=== PATIENT | female | born 1945 | race Hispanic/Latino ===

== ENCOUNTER 2016-09-15 14:00 | Emergency (ER) | payer BC, MEDICARE ==
[2016-09-15] MEDS ORDERED: VALIUM PO ONE (17:00)
[2016-09-15 17:50] VITALS: BP 152/68
--- NOTE | 2016-09-15 18:06 | Emergency Department Report ---
ED General Adult HPI - General Chief complaint: Headache Stated complaint: ELEVATED BP/NAUSEA/DIARRHEA Time Seen by Provider: 09/15/16 16:33 Source: patient Mode of arrival: Ambulatory Limitations: No Limitations - History of Present Illness Initial comments: patient comes in today with complaints of feeling overwhelmed. States that she has multiple stressors going on in her life and thinks that she needs some help. States that it all seemed to start in March 2016 when her spouse of 26 years . States that she left catholic today and had an episode of crying, DE ANDA, nausea. States that she believes that she had a panic attack. States that she does not sleep very good at night because her mind won't stop racing. Patient is asking for some help. -: unknown Consistency: intermittent Associated Symptoms: headaches, loss of appetite, nausea/vomiting. denies: confusion, chest pain, cough, diaphoresis, fever/chills, rash, seizure, shortness of breath, syncope, weakness - Related Data Home Medications Medication Instructions Recorded Confirmed Last Taken Estradiol 1.5 mg PO DAILY 07/20/14 07/20/14 Unknown Furosemide [Lasix] 40 mg PO DAILY 07/20/14 07/20/14 Unknown Levothyroxine [Synthroid] 75 mcg PO DAILY 07/20/14 07/20/14 Unknown Previous Rx's Medication Instructions Recorded Last Taken Type Pantoprazole [Protonix TAB] 40 mg PO DAILY #30 tablet 07/21/14 Unknown Rx Diazepam Tab [Valium] 5 mg PO TID PRN #45 tablet 09/15/16 Unknown Rx Escitalopram [Lexapro] 10 mg PO DAILY #30 tablet 09/15/16 Unknown Rx Allergies Allergy/AdvReac Type Severity Reaction Status Date / Time No Known Allergies Allergy Verified 09/15/16 14:52 ED Review of Systems ROS: Stated complaint: ELEVATED BP/NAUSEA/DIARRHEA Other details as noted in HPI Constitutional: denies: chills, fever Eyes: denies: eye pain, eye discharge, vision change ENT: denies: ear pain, throat pain Respiratory: denies: cough, orthopnea, shortness of breath, SOB with exertion, wheezing Cardiovascular: denies: chest pain, palpitations, dyspnea on exertion, edema, syncope, paroxysmal nocturnal dyspnea Endocrine: no symptoms reported. denies: excessive sweating, flushing, intolerance to cold, increased hunger, increased thirst, increased urine Gastrointestinal: nausea, diarrhea. denies: abdominal pain, vomiting Genitourinary: denies: urgency, dysuria, frequency, hematuria, discharge Musculoskeletal: denies: back pain, joint swelling, arthralgia Skin: denies: rash, lesions Neurological: headache. denies: weakness, paresthesias Psychiatric: anxiety, depression, other (sleep disturbance, poor thought process , irritability). denies: auditory hallucinations, visual hallucinations, homicidal thoughts, suicidal thoughts Hematological/Lymphatic: denies: easy bleeding, easy bruising ED Past Medical Hx - Past Medical History Hx Hypertension: Yes Hx GERD: Yes Hx Kidney Stones: Yes Additional medical history: MVP. HYPOTHYROID - Surgical History Hx Cholecystectomy: Yes Additional Surgical History: hysterectomy. HERNIA REPAIR. TONSILLECTOMY. RIGHT KNEE -LAPAROSCOPY. KIDNEY STONES REMOVED - Social History Smoking Status: Never Smoker Substance Use Type: None - Medications Home Medications: Home Medications Medication Instructions Recorded Confirmed Last Taken Type Estradiol 1.5 mg PO DAILY 07/20/14 07/20/14 Unknown History Furosemide [Lasix] 40 mg PO DAILY 07/20/14 07/20/14 Unknown History Levothyroxine [Synthroid] 75 mcg PO DAILY 07/20/14 07/20/14 Unknown History Pantoprazole [Protonix TAB] 40 mg PO DAILY #30 tablet 07/21/14 Unknown Rx Diazepam Tab [Valium] 5 mg PO TID PRN #45 tablet 09/15/16 Unknown Rx Escitalopram [Lexapro] 10 mg PO DAILY #30 tablet 09/15/16 Unknown Rx ED Physical Exam - General Limitations: No Limitations General appearance: alert, in no apparent distress, anxious, other (tearful) - Head Head exam: Present: atraumatic, normocephalic, normal inspection - Eye Eye exam: Present: normal appearance, PERRL, EOMI Pupils: Present: normal accommodation - ENT ENT exam: Present: normal exam, normal orophraynx, mucous membranes moist - Neck Neck exam: Present: normal inspection, full ROM. Absent: tenderness, meningismus, lymphadenopathy, thyromegaly - Respiratory Respiratory exam: Present: normal lung sounds bilaterally. Absent: respiratory distress, wheezes, rales, rhonchi, chest wall tenderness, accessory muscle use - Cardiovascular Cardiovascular Exam: Present: regular rate, normal rhythm. Absent: systolic murmur, diastolic murmur, rubs, gallop - GI/Abdominal GI/Abdominal exam: Present: soft, normal bowel sounds. Absent: distended, tenderness, guarding, rebound, rigid - Rectal Rectal exam: Present: deferred - Extremities Exam Extremities exam: Present: normal inspection - Back Exam Back exam: Present: normal inspection, full ROM. Absent: tenderness, CVA tenderness (R), CVA tenderness (L), muscle spasm, paraspinal tenderness - Neurological Exam Neurological exam: Present: alert, oriented X3, CN II-XII intact, normal gait, reflexes normal. Absent: motor sensory deficit - Psychiatric Psychiatric exam: Present: normal affect, normal mood, anxious. Absent: agitated, manic, homicidal ideation, suicidal ideation - Skin Skin exam: Present: warm, dry, intact, normal color. Absent: rash - Other Other exam information: spend several minutes with patient allowing her to speak freely. ED Course Vital Signs 09/15/16 09/15/16 14:54 17:49 Temperature 98.2 F Pulse Rate 56 L Respiratory 17 16 Rate Blood Pressure 178/82 Blood Pressure 152/68 [Left] O2 Sat by Pulse 98 Oximetry ED Medical Decision Making - Medical Decision Making patient is having many symptoms that I do believe to be ralted to stress and poor sleep patterns. She states that she used to be on blood pressure meds but that her doctor took her off the medicine as her BP was running good. She has multiple stressors in her life but does have good support at home. She has taken Valium in the past with great success. I gave patient a dose of oral valium in ER and her BP improved to 152/68 and therefore I am more inclined to treat her anxiety prior to starting new BP meds now. Patient is with family in room and they are in agreement with treatment plan and she is stable for discharge. Critical care attestation.: If time is entered above; I have spent that time in minutes in the direct care of this critically ill patient, excluding procedure time. ED Disposition Clinical Impression: HTN (hypertension), Anxiety, Insomnia Disposition: DISCHARGED TO HOME OR SELFCARE Is pt being admited?: No Does the pt Need Aspirin: No Condition: Good Instructions: Hypertension (ED), Panic Disorder (ED), Anxiety (ED), Stress (ED) Prescriptions: Diazepam Tab [Valium] 5 mg PO TID PRN #45 tablet PRN Reason: Anxiety Escitalopram [Lexapro] 10 mg PO DAILY #30 tablet Referrals: PRIMARY CARE,MD [Primary Care Provider] - 3-5 Days (for BP check and medication check) Forms: Work/School Release Form(ED) Time of Disposition: 18:15
== END 2016-09-15 18:27 | disposition home or self-care (01) ==
LOC: ED 14:00
DX: I10 Essential (primary) hypertension (principal); F41.9 Anxiety disorder, unspecified; G47.00 Insomnia, unspecified; K21.9 Gastro-esophageal reflux disease without esophagitis; E03.9 Hypothyroidism, unspecified; Z90.710 Acquired absence of both cervix and uterus; Z90.89 Acquired absence of other organs; Z90.49 Acquired absence of other specified parts of digestive tract
CPT/HCPCS: 99282

== ENCOUNTER 2016-09-26 12:28 | Outpatient (CLI) | payer BC, MEDICARE ==
--- NOTE | 2016-09-27 08:59 | Mammography Report ---
BILATERAL DIGITAL SCREENING MAMMOGRAM with CAD : 09/26/16 12:28:00 CLINICAL: Routine screening. COMPARISON:12/02/14 FINDINGS: The breasts are heterogeneously dense, which may obscure small masses. No mass, architectural distortion or suspicious calcifications. IMPRESSION: No mammographic evidence of malignancy. BI-RADS CATEGORY: 2 -- Benign RECOMMENDATION: Routine mammographic screening in one year. COMMENT: Patient follow-up letters are generated by our [employer] application.
== END 2016-09-26 12:29 | disposition home or self-care (01) ==
LOC: SPVWC 12:28
PROVIDERS: ATTEND Obstetrics & Gynecology
DX: Z12.31 Encounter for screening mammogram for malignant neoplasm of breast (principal)
CPT/HCPCS: 77067; G0202

== ENCOUNTER 2017-10-14 07:59 | Outpatient (CLI) | payer BC, MEDICARE ==
--- NOTE | 2017-10-14 10:12 | Mammography Report ---
BONE DEXA:10/14/17 08:30:00 CLINICAL: Postmenopausal. No comparison. TECHNIQUE: Two site bone DEXA performed on an Hologic scanner. FINDINGS: L1 BMD is 0.860g/cm squared with T score = -1.2 and Z score = +0.7. L2 BMD is 0.895g/cm squared with T score = -1.2 and Z score = +0.9. L3 BMD is 0.926g/cm squared with T score = -1.4 and Z score = +0.8. L4 BMD is 0.955g/cm squared with T score = -1.2 and Z score = +0.9. The average BMD of the lumbar spine L1-L4 is 0.912g/cm squared with T-score = -1.2 and Z-score = +0.9. The average BMD of the left hip is 0.816g/cm squared with a T-score = -1.0 and a Z-score = +0.5. The left femoral neck BMD is 0.67g/cm squared with a T score = -2.0 and a Z score = -0.2 IMPRESSION: WHO classification: Osteopenia with increased fracture risk based on lumbar spine and left femoral neck measurements. RECOMMENDATION: Clinical correlation and routine screening. DEFINITIONS: BMD = Bone Mineral Density T-score = BMD related to mean peak bone mass of young adult (mean expressed in Standard Deviation) Z-score = Age matched BMD expressed in SD World Health Organization (WHO) Diagnostic Criteria Normal T-score > -1 SD Osteopenia T-score between -1 and -2.4 SD Osteoporosis T-score -2.5 SD or below NOTE: BMD is not the only risk factor for fracture. One should also consider factors such as the patient's age, risk of falling, previous osteoporotic fracture, family history of osteoporotic fractures, current smoker, and low body weight. Z-scores are not calculated if >80 years of age.
--- NOTE | 2017-10-14 14:33 | Mammography Report ---
BILATERAL DIGITAL SCREENING MAMMOGRAM with CAD : 10/14/17 07:59:00 CLINICAL: Routine screening. COMPARISON:09/26/16 FINDINGS: The breasts are heterogeneously dense, which may obscure small masses and the breasts are sufficiently dense to limit the sensitivity of mammography. No mass, architectural distortion or suspicious calcifications. IMPRESSION: No mammographic evidence of malignancy. BI-RADS CATEGORY: 2 -- Benign RECOMMENDATION: Routine mammographic screening in one year. COMMENT: Patient follow-up letters are generated by our [employer] application.
== END 2017-10-14 08:00 | disposition home or self-care (01) ==
LOC: SPVWC 07:59
PROVIDERS: ATTEND Obstetrics & Gynecology
DX: Z12.31 Encounter for screening mammogram for malignant neoplasm of breast (principal); M85.88 Other specified disorders of bone density and structure, other site; Z78.0 Asymptomatic menopausal state
CPT/HCPCS: 77067; 77080